=== PATIENT | male | born 1960 | race Two or more races ===

== ENCOUNTER 2022-10-16 12:52 | Outpatient (CLI) | payer OTHER | END 2022-10-16 12:56 | disposition home or self-care (01) | LOC: LAB 12:52 | PROVIDERS: ATTEND Urology | DX: R97.20 Elevated prostate specific antigen [PSA] (principal) ==

== ENCOUNTER 2022-10-30 07:06 | Outpatient (CLI) | payer OTHER | END 2022-10-30 07:25 | disposition home or self-care (01) | LOC: SONOGRAMA 07:06 | PROVIDERS: ATTEND Urology | DX: C61 Malignant neoplasm of prostate (principal) ==

== ENCOUNTER 2022-11-15 07:15 | Outpatient (CLI) | payer OTHER | END 2022-11-15 07:24 | disposition home or self-care (01) | LOC: NUCLEAR 07:15 | PROVIDERS: ATTEND Urology | DX: I65.1 Occlusion and stenosis of basilar artery (principal); I25.110 Atherosclerotic heart disease of native coronary artery with unstable angina pectoris ==

== ENCOUNTER → 2022-11-15 | Outpatient (CLI) | payer OTHER | END | disposition home or self-care (01) | LOC: NUCLEAR 07:30 | PROVIDERS: ATTEND Urology | DX: I25.10 Atherosclerotic heart disease of native coronary artery without angina pectoris (principal); I65.1 Occlusion and stenosis of basilar artery ==

== ENCOUNTER 2023-03-03 12:00 | Inpatient (IN) | payer OTHER ==
[~2023-03-03] VITALS: Ht 170.2 cm; Wt 103.0 kg
[2023-03-03] MEDS ORDERED: NORVASC5 MG PO (13:34)
[2023-03-03] MEDS ORDERED: DIOVAN HCT 1601 EACH PO (13:34)
[2023-03-08 07:57] LABS: CALCIUM 8.4 mg/dL (8.5-10.1); CREATININE SERUM 0.75 mg/dL (0.70-1.30); GFR 105.52; POTASSIUM 4.23 mEq/L (3.5-5.1)
[2023-03-08 08:02] LABS: HEMATOCRIT 39.8 % (39.0-48.0); HEMOGLOBIN 13.3 g/dL (13-16.00); MEAN CELL VOLUME 85.6 fL (80.0-100.00); MEAN CORPUSCULAR HEMOGLOBIN 28.6 pg (27.00-32.0); MEAN CORPUSCULAR HGB CONC 33.4 g/dl (32.0-36.0); PLATELET COUNT 217 K/uL (150-450); RED BLOOD COUNT 4.65 M/uL (4.00-6.00); RED CELL DISTRIBUTION WIDTH 14.3 % (11.5-14.5)
[2023-03-09 07:43] LABS: HEMATOCRIT 38.8 % (39.0-48.0); HEMOGLOBIN 12.7 g/dL (13-16.00); MEAN CELL VOLUME 86.5 fL (80.0-100.00); MEAN CORPUSCULAR HEMOGLOBIN 28.3 pg (27.00-32.0); MEAN CORPUSCULAR HGB CONC 32.8 g/dl (32.0-36.0); PLATELET COUNT 194 K/uL (150-450); RED BLOOD COUNT 4.48 M/uL (4.00-6.00); RED CELL DISTRIBUTION WIDTH 14.3 % (11.5-14.5)
[2023-03-09 08:00] LABS: CREATININE SERUM 0.81 mg/dL (0.70-1.30); GFR 96.56; POTASSIUM 3.64 mEq/L (3.5-5.1)
== END 2023-03-09 14:16 | disposition home or self-care (01) | DRG 708 ==
LOC: SURH 03-07 05:50 → O/R 03-07 05:50 → SURG 03-07 07:00 → SURH 03-07 13:53
PROVIDERS: ADMIT Urology; ATTEND Urology
PROC: 8E0W4CZ Robotic Assisted Procedure of Trunk Region, Percutaneous Endoscopic Approach (ICD-10-PCS; 2023-03-07)
PROC: 0VT04ZZ Resection of Prostate, Percutaneous Endoscopic Approach (ICD-10-PCS; principal; 2023-03-07 07:00)
DX: C61 Malignant neoplasm of prostate (principal); I10 Essential (primary) hypertension
CPT/HCPCS: 55866; S2900

== ENCOUNTER → 2023-07-04 08:05 | Outpatient (CLI) | payer OTHER ==
[~2023-07-04 08:05] MED LIST: DIOVAN HCT 1601 EACH PO; NORVASC5 MG PO
[2023-07-04 09:36] LABS: PH,URINE 5.5 (5.0-8.0); URINE APPEARANCE Clear; URINE BILIRRUBIN Negative (NEGATIVE); URINE BLOOD Negative; URINE COLOR Yellow; URINE GLUCOSE Negative (NEGATIVE); URINE LEUKOCYTE Small; URINE NITRATE Negative; URINE PROTEIN Trace (NEGATIVE); URINE UROBILINOGEN 0.2 E.U./dl
[2023-07-04 09:38] LABS: URINE BACTERIA 600.8 uL (0.0-1933); URINE EPITHELIAL CELLS 3.4 uL (0.0-38.8); URINE RBC 7.3 uL (0.0-20.8); URINE WBC 106.3 uL (0.0-23.2)
== END | disposition home or self-care (01) ==
LOC: LAB 08:05
PROVIDERS: ATTEND Urology
DX: R97.20 Elevated prostate specific antigen [PSA] (principal); R31.1 Benign essential microscopic hematuria

== ENCOUNTER 2023-07-04 10:12 | Outpatient (CLI) | payer OTHER | END 2023-07-04 10:13 | disposition home or self-care (01) | LOC: SONOGRAMA 10:12 | PROVIDERS: ATTEND Urology | DX: C61 Malignant neoplasm of prostate (principal); R31.1 Benign essential microscopic hematuria ==